=== PATIENT | female | born 1980 | race Caucasian/White ===

== ENCOUNTER 2020-06-18 08:32 | Outpatient (CLI) | payer OTHER, SELFPAY ==
--- NOTE | ~2020-06-18 | MM_ITS ---
EXAMINATION: MM screening cindy BI w kathy HISTORY: Screening TECHNIQUE: Craniocaudal and mediolateral oblique 3-D tomosynthesis images were obtained and synthetic 2-D images were generated. CAD analysis was submitted and interpreted. COMPARISON: 12/28/2017 BREAST PARENCHYMAL COMPOSITION: The breasts are extremely dense, which lowers the sensitivity of mamm ography FINDINGS: There is no evidence of suspicious mass, calcification, or architectural distortion to sugg est malignancy in either breast. There has been no suspicious interval change. IMPRESSION: 1. No mammographic evidence of malignancy. 2. Recommend routine screening mammography in one year. BI-RADS Category 1: Negative Reviewed, dictated and finalized at location A.
== END 2020-06-18 08:33 | disposition home or self-care (01) ==
LOC: ANHIMG 08:37
PROVIDERS: PCP Internal Medicine; Visit Provider Obstetrics & Gynecology
DX: Z12.31 Encounter for screening mammogram for malignant neoplasm of breast (principal)
CPT/HCPCS: 77063; 77067

== ENCOUNTER 2022-07-31 07:37 | Outpatient (CLI) | payer OTHER, SELFPAY ==
--- NOTE | ~2022-07-31 | MM_ITS ---
EXAMINATION: MM screening cindy BI w kathy HISTORY: Screening mammogram TECHNIQUE: Craniocaudal and mediolateral oblique 3-D tomosynthesis images were obtained and synthetic 2-D images were generated. CAD analysis was submitted and interpreted. COMPARISON: 06/2020, 12/31/2017 bilateral screening mammogram examinations BREAST PARENCHYMAL COMPOSITION: The breasts are extremely dense, which lowers the sensitivity of mamm ography. FINDINGS: Left breast: There is new focal asymmetry and architectural distortion including spiculatio n in the posterior upper outer left breast.. The appearance is very suspicious for breast malignancy. Diagnostic left mammogram and left breast ultrasound examination are recommended. Right breast: There is no evidence of suspicious mass, calcification, or architectural distortion to suggest malignancy in the right breast. There has been no suspicious interval change. IMPRESSION: 1. New mass and architectural distortion in the posterior upper outer left breast, very suspicious fo r breast malignancy 2. Diagnostic left mammogram and left breast ultrasound examination is recommended BI-RADS Category 0: Incomplete: Needs additional imaging evaluation. Reviewed, dictated and finalized at location A. IMPRESSION: 1. New mass and architectural distortion in the posterior upper outer left [address], very suspicious for breast malignancy 2. Diagnostic left mammogram and left breast ultrasound examination is recommen ded BI-RADS Category 0: Incomplete: Needs additional imaging evaluation.
== END 2022-07-31 07:38 | disposition home or self-care (01) ==
LOC: ANHIMG 07:38
PROVIDERS: PCP Internal Medicine; Visit Provider Obstetrics & Gynecology
DX: Z12.31 Encounter for screening mammogram for malignant neoplasm of breast (principal); R92.8 Other abnormal and inconclusive findings on diagnostic imaging of breast
CPT/HCPCS: 77063; 77067

== ENCOUNTER 2024-05-30 21:47 | Emergency (ER) | payer OTHER, SELFPAY ==
--- NOTE | ~2024-05-30 | XR_ITS ---
EXAM: XR hand RT min 3V DATE: 05/30/2024 22:02 HISTORY: dog bite, swelling, pain to 4th digit. . COMPARISON: None available. FINDINGS: Normal mineralization. No fracture or dislocation. No lytic or blastic lesion. Joint space s are maintained. No erosion or periosteal change. Soft tissues within normal limits. IMPRESSION: No acute osseous finding in the right hand. Reviewed, dictated and finalized at location K.
[2024-05-30 21:49] VITALS: BP 146/91; PULSE 89; RESP 15; TEMP 37.2; O2SAT 100
== END 2024-05-30 23:35 | disposition left against medical advice (07) ==
PROVIDERS: Emergency Provider Emergency Medicine; PCP Internal Medicine
DX: S61.451A Open bite of right hand, initial encounter (principal); W54.0XXA Bitten by dog, initial encounter
CPT/HCPCS: 73130; 99199